=== PATIENT | female | born 1950 | race Caucasian/White ===

== ENCOUNTER 2017-04-23 15:16 | Observation (INO) | payer OTHER ==
[~2017-04-23] VITALS: Ht 157.5 cm; Wt 73.5 kg
[2017-04-23] MEDS ORDERED: NACL 0.9% 1,000 ML IV ONE (15:19)
[2017-04-23] MEDS ORDERED: methylPREDNISolone SS 125 MG in WATER STERILE 2 ML IV ONE (15:20)
[2017-04-23] MEDS ORDERED: FAMOTIDINE 20 MG/2 ML VIAL IVP ONE (15:20)
[2017-04-23 15:22] VITALS: BP 153/66
--- NOTE | 2017-04-23 15:23 | NUR ---
/F YAMINI C/O ANT BITES x TODAY @ 9440. EMS STATES THAT PATIENT WAS AT WORK WHEN SHE GOT BITTEN BY ANTS ON THE RT FOOT. PT WAS GIVEN ZOFRAN 8MG IVP, BENADRYL 50MG IVP AND EPINEPHRINE 0.5MG IM PER [facility]. HX: HYPOTHYROIDISM, L BREAST CA MEDS: SYNTHROID AND ANTINEOPLASTIC MEDS. DENIES N/V/D; SKIN RASHES TO R FOOT, FACE, ANETA ARMS; AAOX4 WITH EVEN AND STEADY GAIT; LUNGS CLEAR BL; PATIENT STATES PAIN OF 0/10 AT THIS TIME; PATIENT POSITIONED FOR COMFORT; HOB ELEVATED; BEDRAILS UP X2; BED DOWN. ER MD MADE AWARE OF PT STATUS. Addendum: 04/23/17 at 1550 by [facility] PT STS " I FEEL I CAN BREATH BEETER. Patient appears to be resting comfortably in bed. Vital Signs within normal limits. Respirations even and unlabored.
--- NOTE | 2017-04-23 16:07 | NUR ---
Patient being reevaluated by DR TORO at bedside. Addendum: 04/23/17 at 1755 by [facility] DON'T CHECK BP L ARM.
[2017-04-23] MEDS ORDERED: hydrOXYzine 50 MG/ML VIAL IM ONE (17:10)
[2017-04-23] MEDS ORDERED: hydrOXYzine HCL 25 MG TAB PO STA (17:26)
--- NOTE | 2017-04-23 17:54 | NUR ---
Patient will be admitted to care of DR Rm RENDON . Admited to MS. Will go to room 107B. Belongings list completed. Report to AJAY SALVADOR.
--- NOTE | 2017-04-23 18:10 | NUR ---
PATIENT ADMITTED TO THE UNIT FROM ER. PATIENT AWAKE, ALERT AND ORIENTED. NO S/S OF DISTRESS NOTED. NO C/O PAIN. SWELLING NOTED TO THE RIGHT FOOT. SKIN IS INTACT. IV LINE NOTED TO THE RIGHT AC. BED LOWERED WITH CALL LIGHT WITHIN REACH. WILL CONTINUE TO MONITOR
[2017-04-23 18:20] VITALS: BP 104/66
[2017-04-23] MEDS ORDERED: DEXT 5% / NACL 0.45% 1,000 ML IV SCH (18:40)
[2017-04-23] MEDS ORDERED: ACETAMINOPHEN 325 MG TAB PO PRN (18:55)
[2017-04-23] MEDS ORDERED: LORazepam 2 MG/ML VIAL IVP PRN (18:55)
[2017-04-23] MEDS ORDERED: HYDROcodone/APAP 5/325 MG 1 TAB TAB PO PRN (18:55)
[2017-04-23] MEDS ORDERED: ONDANSETRON 4 MG/2 ML VIAL IVP PRN (18:55)
--- NOTE | 2017-04-23 19:34 | NUR ---
PATIENT REPORT GIVEN AT BEDSIDE. PATIENT ENDORSED IN STABLE CONDITION
--- NOTE | 2017-04-23 19:35 | NUR ---
RECEIVED PT FROM DAY SHIFT NURSE, PT IS AAOX4, PT IS IN STABLE CONDITION. PT IS ON RA, IV TO R AC 18 G SL, PATENT AND INTACT. PT SKIN IS INTACT. PT HAS A SWOLLEN THIRD TOE ON THE RIGHT FOOT FROM A POSSIBLE BITE PER PT. PT SKIN IS INTACT. NO S/S OF DISTRESS NOTED. RESPIRATIONS ARE EVEN AND UNLABORED, BOWEL SOUNDS PRESENT. ALL SAFETY PRECAUTIONS MET, CALL LIGHT WITHIN REACH, WILL CONTINUE TO MONITOR.
[2017-04-23] MEDS: diphenhydrAMINE 50 MG CAP PO SCH (23:47)
[2017-04-24] VITALS: BP 98/55
[2017-04-24] MEDS ORDERED: diphenhydrAMINE 50 MG/ML VIAL IVP SCH
--- NOTE | 2017-04-24 | NUR ---
PT RESTING COMFORTABLY IN BED. NO S/S OF DISTRESS NOTED, ALL SAFETY PRECAUTIONS MET, CALL LIGHT WITHIN REACH, WILL CONTINUE TO MONITOR
--- NOTE | 2017-04-24 04:30 | NUR ---
PT UP, AWAKE SITTING IN BED. BROUGHT PT COFFEE PER REQUEST. PT COMFORTABLE, CALL LIGHT WITHIN REACH, WILL CONTINUE TO MONITOR.
[2017-04-24] MEDS: diphenhydrAMINE 50 MG CAP PO SCH (05:51)
[2017-04-24 06:13] LABS: BASOPHILS # (AUTO) 0.2 K/uL (0.00-0.22); BASOPHILS % (AUTO) 1.7 % (0.0-2.0); EOSINOPHILS # (AUTO) 0.1 K/uL (0-0.4); EOSINOPHILS % (AUTO) 0.8 % (0.0-4.0); HEMATOCRIT 40.8 % (36-48); HEMOGLOBIN 13.8 g/dL (12.0-16.0); LYMPHOCYTES # (AUTO) 0.8 K/uL (2.5-16.5); LYMPHOCYTES % (AUTO) 6.8 % (20.5-51.1); MEAN CORPUSCULAR HEMOGLOBIN 33 pg (27-31); MEAN CORPUSCULAR HGB CONC 34 g/dL (33-37); MEAN CORPUSCULAR VOLUME 97 fL (80-94); MONOCYTES # (AUTO) 0.1 K/uL (0.8-1.0); MONOCYTES % (AUTO) 1.1 % (1.7-9.3); NEUTROPHILS # (AUTO) 11.3 K/uL (1.8-7.7); NEUTROPHILS % (AUTO) 89.6 % (42.2-75.2); PLATELET COUNT (AUTO) 183 K/uL (140-450); RED BLOOD CELL COUNT(AUTO) 4.22 MIL/uL (4.20-5.40); RED CELL DISTRIBUTION WIDTH 12.9 % (11.6-13.7); WHITE BLOOD COUNT (AUTO) 12.5 K/uL (4.8-10.8)
[2017-04-24 06:17] LABS: ANION GAP 13.3 (8-16); CARBON DIOXIDE 23.8 mmol/L (21-32); CREATININE 0.8 mg/dL (0.6-1.3); POTASSIUM 4.1 mmol/L (3.5-5.1)
--- NOTE | 2017-04-24 06:58 | NUR ---
PATIENT HAS BEEN SCREENED AND CATEGORIZED LOW NUTRITION RISK. PATIENT WILL BE SEEN WITHIN 7 DAYS OF ADMISSION. 04/29/17 ADRIANNA MORENO MS, RDN
--- NOTE | 2017-04-24 07:30 | NUR ---
GAVE REPORT TO DAY NURSE AT THE BEDSIDE FOR CONTINUITY OF CARE, PT IN STABLE CONDITION. NO S/S OF DISTRESS NOTED
--- NOTE | 2017-04-24 07:31 | NUR ---
RECEIVED PT FROM ALLERGY NURSE NURSE AT BEDSIDE. PT IS A&OX4. PT HAS IV ON R AC 18G SL. THE BOTTOM OF R FOOT STILL APPEARS TO BE SWOLLEN. 3RD TOE NOT SWOLLEN. PT HAS A HX OF L MASTECTOMY, THEREFORE NO IV OR BP ON THIS SIDE. PT HAS NO COMPLAINTS AT THIS TIME. CALL LIGHT WITHIN REACH. WILL CONTINUE TO MONITOR.
[2017-04-24 08:00] VITALS: BP 97/69
--- NOTE | 2017-04-24 09:00 | NUR ---
PT IS RESTING COMFORTABLY IN BED. CALL LIGHT WITHIN REACH. WILL CONTINUE TO MONITOR.
[2017-04-24] MEDS ORDERED: BEN50 PO (09:52)
[2017-04-24 10:18] VITALS: BP 97/69
--- NOTE | 2017-04-24 11:00 | NUR ---
WENT OVER DC PAPERWORK WITH PT. PT VERBALIZED UNDERSTANDING AND SIGNED ALL APPROPRIATE PAPERWORK. CALL LIGHT WITHIN REACH. WILL CONTINUE TO MONITOR.
--- NOTE | 2017-04-24 12:10 | NUR ---
PT REFUSED WHEELCHAIR. REMOVED IV CANNULA INTACT. REMOVED ALL ID BANDS. PT WALKED OUT OF HOSPITAL. PT IN STABLE CONDITION.
== END 2017-04-24 12:10 | disposition home or self-care (01) ==
LOC: MED 15:16 → INTOOBSV 17:26 → MTU 17:26 → MED 17:54
PROVIDERS: ADMIT Preventive Medicine Preventive Medicine/Occupational Environmental Medicine; ATTEND Preventive Medicine Preventive Medicine/Occupational Environmental Medicine
DX: T63.481A Toxic effect of venom of other arthropod, accidental (unintentional), initial encounter (principal); T78.2XXA Anaphylactic shock, unspecified, initial encounter; D72.829 Elevated white blood cell count, unspecified; I12.9 Hypertensive chronic kidney disease with stage 1 through stage 4 chronic kidney disease, or unspecified chronic kidney disease; N18.9 Chronic kidney disease, unspecified; D63.1 Anemia in chronic kidney disease; R73.9 Hyperglycemia, unspecified; Z85.3 Personal history of malignant neoplasm of breast
CPT/HCPCS: 36415; 80048; 85025; 87081; 96361; 96374; 96375; 99285; G0378; J2930; J3490; J7030; Q0163; J3410